=== PATIENT | female | born 1980 | race Caucasian/White ===

== ENCOUNTER 2017-02-21 18:24 | Emergency (ER) | payer SELFPAY ==
[~2017-02-21] VITALS: Ht 185.4 cm; Wt 100.0 kg
[2017-02-21 18:25] VITALS: BP 134/87; PULSE 94; RESP 20; TEMP 98.3; O2SAT 95
[2017-02-21 19:09] LABS: BASOPHIL # 0.1 TH/MM3 (0-0.2); BASOPHIL % 0.8 % (0.0-2.0); EOSINOPHIL # 0.2 TH/MM3 (0-0.4); EOSINOPHIL % 1.8 % (0.0-4.0); HEMATOCRIT 43.8 % (35.0-46.0); HEMO FLAGS DIFF FINAL; LYMPH % 20.1 % (9.0-44.0); LYMPHOCYTE # 2.6 TH/MM3 (1.0-4.8); MEAN CELL VOLUME 86.3 FL (80.0-100.0); MEAN CORPUSCULAR HEMOGLOBIN 29.3 PG (27.0-34.0); MONO % 6.8 % (0.0-8.0); NEUT % 70.5 % (16.0-70.0); PLATELET COUNT 418 TH/MM3 (150-450); RED BLOOD COUNT 5.07 MIL/MM3 (4.00-5.30); RED CELL DISTRIBUTION WIDTH 13.6 % (11.6-17.2); WHITE BLOOD COUNT 12.8 TH/MM3 (4.0-11.0)
[2017-02-21 19:15] LABS: BACTERIA, URINE RARE /hpf; BLOOD, URINE NEG (NEG); GLUCOSE,URINE TRACE mg/dL (NEG); KETONE, URINE TRACE mg/dL (NEG); MUCUS URINE FEW /lpf (OCC); NITRITE,URINE NEG (NEG); PH, URINE 5.5 (5.0-8.5); SQUAMOUS EPITHELIAL CELL URINE 5 /hpf (0-5); URINE COLOR YELLOW (YELLW/STRAW)
[2017-02-21 19:19] LABS: COMMENT (UR) CULT NOT INDICATED; CULTURE IF INDICATED CULT NOT INDICATED
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
[2017-02-21 19:39] LABS: BICARBONATE 26.4 MEQ/L (21.0-32.0); POTASSIUM 3.6 MEQ/L (3.5-5.1)
[2017-02-21 20:56] LABS: AMPHETAMINE, URINE NEG (NEG); BARBITURATES, URINE NEG (NEG); COCAINE, URINE NEG (NEG)
[2017-02-21 22:00] VITALS: BP 112/81; PULSE 92; RESP 18; TEMP 99; O2SAT 96
[2017-02-22 02:04] VITALS: BP 116/70; PULSE 73; RESP 19; TEMP 98.6; O2SAT 96
[2017-02-22 06:03] VITALS: BP 102/57; PULSE 57; RESP 19; TEMP 97.9; O2SAT 98
--- NOTE | 2017-02-22 09:54 | PD ---
History of Present Illness Chief Complaint: Psychiatric Symptoms Time Seen by Provider: 09:40 Travel History International Travel<30 Days: No Contact w/Intl Traveler<30days: No Known affected area: No Legal Status Legal Status: Voluntary History of Present Illness: History of Present Illness HPI 36-year-old white female with a reported history of schizoaffective disorder who presents to emergency department on a voluntary basis for psychological evaluation. She complains of having thoughts of self harm with no plan and no attempts at harming self. Stressors include recent move to [place] as well as breakup with significant other earlier in the day , and possibly homelessness. Seen. Record reviewed. This is her first contact with [facility]. Denies any substance use and negative toxicology. The patient was monitored in [facility] overnight. This morning she is again evaluated with [facility]. She is alert, oriented, calm and cooperative. Appears stated age. maintaining basic hygiene. Speech is clear and logical, goal directed. There is no lela and no hypomania. There is no psychosis. She denies any hallucinations, no delusions and no paranoia. No significant depressive or anxious symptomatology. She is currently not taking any psychiatric medication and indicates she has never taken any psychotropics. She is denying any suicidal or homicidal ideation, intent or plan. She would like to explore options regarding outpatient treatment at this time. Staes " I was having a terrible day yesterday and blew up. I am not having those thoughts anymore". PFSH Past Medical History Tetanus Vaccination: > 5 Years Influenza Vaccination: Yes ?: Not LMP: 02/14/2017 Past Surgical History Tonsillectomy: Yes Psychiatric History Psychiatric History Hx Psychiatric Treatment: HX: BIPOLAR, DEPRESSION PER PATIENT [facility] History of Inpatient Treatment: Yes Guns or firearms in home: No Social History Single female. Moved to [place] one month ago. was living with her boyfriend. On disability. She is thinking of returning to school and to study photography. Has been staying with friends. Hx Alcohol Use: Yes Hx Tobacco Use: Yes Hx Substance Use: No (PT DENIES) Hx of Substance Use Treatment: No Family Psychiatric History Negative Allergies-Medications (Allergen,Severity, Reaction): Coded Allergies: No Known Allergies (Unverified , 02/21/17) Reported Meds & Prescriptions Reported Meds & Active Scripts Active No Active Prescriptions or Reported Medications Review of Systems Except as stated in HPI: all other systems reviewed are Neg Exam Alert: Yes [place]: Person (ox4) Mood: Calm Affect: Appropriate Speech: Clear, Logical Eye Contact: Normal Memory Intact: Comment (no impairmetn) Hallucinations: Other (negative) Delusions: No Suicidal: Ideation (denies any) Homicidal: Ideation (deneis any) Insight/Judgement Fair. Not impaired. MDM Medical Decision Making Medical Record Reviewed: Yes Assessment/Plan 36 year old female with reported history of schizoaffective disorder who resents to hospital on a voluntary basis requesting a psychiatric evaluation. Patient recently moved to [facility], broke up with her boyfriend yesterday and was feeling overwhelmed. She was monitored in J pod and presented no behavioral concerns and no suicidality. This morning she is requesting discharge. At this time weighing all the acute, chronic and protective factors I find this patient to be at low imminent risk to harm herself. She sherman snot meet criteria for inpatient treatment and is requesting discharge. She has plans to contact outpatient treatment providers for counseling services. she will be provided with list of referrals for such. Cleared from psychiatry for discharge. Orders Complete Blood Count With Diff (02/21/17 18:28) Basic Metabolic Panel (Bmp) (02/21/17 18:28) Ed Urine Pregnancytest Poc (02/21/17 18:28) Urinalysis - C+S If Indicated (02/21/17 18:28) Drug Screen, Random Urine (02/21/17 18:28) Psych Screen (02/21/17 19:26) Alcohol (Ethanol) (02/21/17 19:26) Diet Regular Basic (02/22/17 Breakfast) Results Vital Signs Date Time Temp Pulse Resp B/P Pulse Ox O2 Delivery O2 Flow Rate FiO2 02/22/17 06:03 97.9 57 19 102/57 98 02/22/17 02:04 98.6 73 19 116/70 96 02/21/17 22:00 99.0 92 18 112/81 96 Room Air 02/21/17 18:48 98 18 02/21/17 18:25 98.3 94 20 134/87 95 Room Air Laboratory Tests Test 02/21/17 02/21/17 18:38 19:35 White Blood Count 12.8 Red Blood Count 5.07 Hemoglobin 14.9 Hematocrit 43.8 Mean Corpuscular Volume 86.3 Mean Corpuscular Hemoglobin 29.3 Mean Corpuscular Hemoglobin 34.0 Concent Red Cell Distribution Width 13.6 Platelet Count 418 Mean Platelet Volume 9.6 Neutrophils (%) (Auto) 70.5 Lymphocytes (%) (Auto) 20.1 Monocytes (%) (Auto) 6.8 Eosinophils (%) (Auto) 1.8 Basophils (%) (Auto) 0.8 Neutrophils # (Auto) 9.0 Lymphocytes # (Auto) 2.6 Monocytes # (Auto) 0.9 Eosinophils # (Auto) 0.2 Basophils # (Auto) 0.1 CBC Comment DIFF FINAL Differential Comment Urine Color YELLOW Urine Turbidity HAZY Urine pH 5.5 Urine Specific [place] 1.026 Urine Protein TRACE Urine Glucose (UA) TRACE Urine Ketones TRACE Urine Occult Blood NEG Urine Nitrite NEG Urine Bilirubin NEG Urine Urobilinogen LESS THAN 2.0 Urine Leukocyte Esterase MOD Urine RBC 2 Urine WBC 2 Urine Squamous Epithelial 5 Cells Urine Amorphous Sediment RARE Urine Bacteria RARE Urine Mucus FEW Microscopic Urinalysis Comment CULT NOT INDICATED Sodium Level 138 Potassium Level 3.6 Chloride Level 102 Carbon Dioxide Level 26.4 Anion Gap 10 Blood Urea Nitrogen 12 Creatinine 0.92 Estimat Glomerular Filtration 69 Rate Random Glucose 152 Calcium Level 8.9 Urine Opiates Screen NEG Urine Barbiturates Screen NEG Urine Amphetamines Screen NEG Urine Benzodiazepines Screen NEG Urine Cocaine Screen NEG Urine Cannabinoids Screen NEG Ethyl Alcohol Level LESS THAN 3 Diagnosis Primary Impression: Medical clearance for psychiatric admission Additional Impression: Adjustment disorder Psychiatrically Cleared: Yes Med/ Other Pt Specific Info: No Meds Exist/No RX given Prescriptions No Active Prescriptions or Reported Meds Disposition: DISCHARGE HOME Condition: Stable Problem Qualifiers Additional Impression: Adjustment disorder Qualified Code: F43.21 - Adjustment disorder with depressed mood Ashely Lindsay Feb 22, 2017 09:54
== END 2017-02-22 11:08 | disposition home or self-care (01) ==
LOC: NEPD 18:24 → NEPJ 02-22 11:08
DX: F43.21 Adjustment disorder with depressed mood (principal); F17.210 Nicotine dependence, cigarettes, uncomplicated; R51 Headache
CPT/HCPCS: 80048; 80307; 81001; 84703; 85025; 99284